=== PATIENT | male | born 1950 | race Two or more races ===

== ENCOUNTER 2020-12-12 12:42 | Outpatient (CLI) | payer MEDICARE, MEDICAID ==
[2020-12-12 15:05] LABS: BASOPHILS % (AUTO) 0.5 % (0.0-2.0); EOSINOPHILS % (AUTO) 2.5 % (0.0-6.0); HEMATOCRIT 41 % (39-51); HEMOGLOBIN 13.6 g/dL (13.5-17.5); LYMPHOCYTES # (AUTO) 1.8 /CMM (0.8-4.8); LYMPHOCYTES % (AUTO) 23.3 % (20.0-44.0); MEAN CORPUSCULAR HGB CONC 33 g/dl (31.0-36.0); MEAN CORPUSCULAR VOLUME 98 fL (80-96); MONOCYTES # (AUTO) 0.8 /CMM (0.1-1.30); MONOCYTES % (AUTO) 10.3 % (2.0-12.0); NEUTROPHILS # (AUTO) 4.8 /CMM (1.8-8.9); NEUTROPHILS % (AUTO) 63.4 % (43.0-81.0); PLATELET COUNT (AUTO) 190 /CMM (150-450); RED BLOOD CELL COUNT(AUTO) 4.21 MIL/uL (4.5-6.0); WHITE BLOOD COUNT (AUTO) 7.5 K/uL (4.3-11.0)
[2020-12-12 15:21] LABS: BILIRUBIN,URINE NEGATIVE (NEGATIVE); COLOR,URINE YELLOW (YELLOW); LEUKOCYTE ESTERASE ,URINE NEGATIVE (NEGATIVE); NITRITE, URINE NEGATIVE (NEGATIVE); PROTEIN,URINE NEGATIVE (NEGATIVE); UGLUCOSE NEGATIVE (NEGATIVE); UROBILINOGEN,URINE 0.2 EU/dL (0.2)
[2020-12-12 15:31] LABS: BACTERIA,URINE RARE /HPF (None Seen); SQUAMOUS EPITHELIAL CELL,UR 0-2 /HPF (None Seen)
[2020-12-12 15:32] LABS: MUCUS,URINE Few /LPF (None Seen)
[2020-12-12 15:36] LABS: PROSTATE SPECIFIC ANTIGEN SCR 2.93 ng/mL (0.00-4.00); THYROID STIMULATING HORMONE 3.495 uIU/mL (0.358-3.74)
[2020-12-12 15:45] LABS: ALBUMIN 3.7 g/dL (3.4-5.0); BILIRUBIN,TOTAL 0.2 mg/dL (0.2-1.0); CALCIUM, SERUM 9.2 mg/dL (8.5-10.1); CREATININE 1.3 mg/dL (0.6-1.3); POTASSIUM 3.5 mmol/L (3.5-5.1); TOTAL PROTEIN, SERUM 7.5 g/dL (6.4-8.2)
== END 2020-12-12 23:59 | disposition home or self-care (01) ==
LOC: MSC 12:42
PROVIDERS: ATTEND Internal Medicine
DX: I10 Essential (primary) hypertension (principal); R07.9 Chest pain, unspecified; R42 Dizziness and giddiness; N17.9 Acute kidney failure, unspecified; I73.9 Peripheral vascular disease, unspecified; Z71.6 Tobacco abuse counseling; Z72.89 Other problems related to lifestyle; Z82.49 Family history of ischemic heart disease and other diseases of the circulatory system; Z79.82 Long term (current) use of aspirin; Z79.899 Other long term (current) drug therapy
CPT/HCPCS: 36415; 71046; 80053; 80061; 81001; 82043; 82570; 82607; 83735; 84100; 84153; 84443; 85025; 85652; G0463

== ENCOUNTER 2020-12-30 14:00 | Outpatient (CLI) | payer MEDICARE, OTHER | END 2020-12-30 23:59 | disposition home or self-care (01) | LOC: CARD 14:00 | PROVIDERS: ATTEND Internal Medicine | DX: R60.9 Edema, unspecified (principal) ==

== ENCOUNTER 2021-01-10 11:11 | Day surgery (SDC) | payer MEDICARE, OTHER ==
[~2021-01-10] VITALS: Ht 167.6 cm; Wt 60.8 kg
[2021-01-10] MEDS ORDERED: IOHEXOL-350 100 ML VIAL IV ONE (11:17)
[2021-01-10] MEDS ORDERED: METOPROLOL TARTRATE INJ 5 MG/5 ML AMPUL ONE (11:17)
[2021-01-10] MEDS ORDERED: NITROGLYCERIN 0.4 MG/TAB BOTTLE ONE (11:17)
[2021-01-10] MEDS ORDERED: CT SWABBABLE VALVE TRANS SET 1 EA INFUS.SET MC ONE (11:18)
[2021-01-10] MEDS ORDERED: IV NS 0.9% 250 ML IV ONE (11:18)
[2021-01-10 11:35] LABS: BASOPHILS # (AUTO) 0.1 /CMM (0.0-0.2); BASOPHILS % (AUTO) 1.3 % (0.0-2.0); EOSINOPHILS % (AUTO) 1.5 % (0.0-6.0); HEMATOCRIT 44 % (39-51); HEMOGLOBIN 14.7 g/dL (13.5-17.5); LYMPHOCYTES % (AUTO) 31.3 % (20.0-44.0); MEAN CORPUSCULAR HGB CONC 33 g/dl (31.0-36.0); MEAN CORPUSCULAR VOLUME 97 fL (80-96); MONOCYTES # (AUTO) 0.5 /CMM (0.1-1.30); MONOCYTES % (AUTO) 8.2 % (2.0-12.0); NEUTROPHILS # (AUTO) 3.6 /CMM (1.8-8.9); NEUTROPHILS % (AUTO) 57.7 % (43.0-81.0); PLATELET COUNT (AUTO) 209 /CMM (150-450); RED BLOOD CELL COUNT(AUTO) 4.59 MIL/uL (4.5-6.0); WHITE BLOOD COUNT (AUTO) 6.3 K/uL (4.3-11.0)
[2021-01-10 11:55] LABS: ALBUMIN 4.2 g/dL (3.4-5.0); BILIRUBIN,TOTAL 0.4 mg/dL (0.2-1.0); CALCIUM, SERUM 9.2 mg/dL (8.5-10.1); CREATININE 1.2 mg/dL (0.6-1.3); POTASSIUM 3.4 mmol/L (3.5-5.1); TOTAL PROTEIN, SERUM 8.3 g/dL (6.4-8.2)
[2021-01-10 12:07] LABS: FREE T4 (FREE THYROXINE) 1.05 ng/dL (0.76-1.46); THYROID STIMULATING HORMONE 1.991 uIU/mL (0.358-3.74)
[2021-01-10] MEDS: METOPROLOL TARTRATE INJ 5 MG/5 ML AMPUL IVP PRN ×2 (12:55→13:00)
[2021-01-10 13:00] VITALS: BP 138/62
[2021-01-10] MEDS ORDERED: NITROGLYCERIN 0.4 MG/TAB BOTTLE SL ONE (13:00)
--- NOTE | 2021-01-10 13:14 | NUR ---
Report given to JAMEEL Porter for cece. Patient VS are stable at this time. Denies discomfort.
--- NOTE | 2021-01-10 14:40 | NUR ---
RN NOTES VS TAKEN: BP-152/90, HR-63, T-98.0, R-20, PAIN-0/10, SPO2-99% IN ROOM AIR.
--- NOTE | 2021-01-10 14:44 | NUR ---
CAPONIZER NOTES PATIENT STATUS POST CARDIAC PROCEDURE TODAY, RECEIVED FROM FRUIT CHECKER, ENDORSED BY MAAME FROM FRUIT CHECKER. PATIENT IS AMBULATORY W/ STEADY GAIT. VS TAKEN. PATIENT STABLE, ABLE TO URINATE AND EAT FOOD/DRINK FLUIDS W/O ANY ISSUES. OKAY FOR DISCHARGE. DTR AT BEDSIDE AND ASSISTED PATIENT TO THE LOBBY TO BE PICKED UP BY FAMILY VIA PRIVATE CAR.
== END 2021-01-10 14:45 | disposition home or self-care (01) ==
LOC: CT 11:11
PROVIDERS: ATTEND Internal Medicine Interventional Cardiology
DX: E11.9 Type 2 diabetes mellitus without complications (principal); E03.9 Hypothyroidism, unspecified; E78.5 Hyperlipidemia, unspecified; R53.83 Other fatigue; I25.10 Atherosclerotic heart disease of native coronary artery without angina pectoris; I31.3 Pericardial effusion (noninflammatory); I70.0 Atherosclerosis of aorta; I70.1 Atherosclerosis of renal artery; M47.814 Spondylosis without myelopathy or radiculopathy, thoracic region; F17.200 Nicotine dependence, unspecified, uncomplicated
CPT/HCPCS: 36415; 71250; 75574; 80053; 80061; 84439; 84443; 85025; 93975; J3490; J7050; Q9967